=== PATIENT | male | born 1945 | race Caucasian/White ===

== ENCOUNTER 2022-01-09 00:26 | Inpatient (IN) ==
[2022-01-09] MEDS ORDERED: Nitroglycerin 0.4 MG TAB.SUBL SL PRN (12:34)
[2022-01-09] MEDS ORDERED: Ammonium Lactate 30 APPL/225 GM BOTTLE TP PRN (12:34)
[2022-01-09] MEDS ORDERED: Erythromycin OPTH Oint BOTH EYES PRN (12:34)
[2022-01-09] MEDS ORDERED: methocarbamoL 500 MG TABLET PO PRN (12:44)
[2022-01-09] MEDS ORDERED: Artificial Tears SOLN 15 ML BOTTLE BOTH EYES PRN (12:45)
[2022-01-09] MEDS ORDERED: Diclofenac Sodium [Arthritis Pain] 100 GM Gel..Gram TP PRN (12:55)
[2022-01-09] MEDS ORDERED: KETOTIFEN FUMARATE OP PRN (12:56)
[2022-01-09] MEDS ORDERED: *HR* Dextrose 50 % in Water (Syg) 50 ML SYRINGE IVP PRN (14:03)
[2022-01-09] MEDS ORDERED: D5% in Water 1,000 ML IVC PRN (14:03)
[2022-01-09] MEDS ORDERED: Dextrose Gel 15 GM/37.5 ML TUBE PO PRN ×2 (14:03)
[2022-01-09] MEDS: Aspirin Enteric Coated 81 MG Tablet PO SCH (14:41)
[2022-01-09] MEDS: Cyanocobalamin (B-12) 1,000 MCG TABLET PO SCH (14:41)
[2022-01-09] MEDS: GlipiZIDE 5 MG TABLET PO SCH (14:42)
[2022-01-09] MEDS: Loratadine 10 MG TABLET PO PRN (14:42)
[2022-01-09] MEDS ORDERED: Bumetanide 1 MG TABLET PO SCH (17:00)
[2022-01-09] MEDS: Bumetanide 1 MG TABLET PO SCH (18:25)
[2022-01-09] MEDS: *HR* Rivaroxaban 10 MG TABLET PO SCH (18:25)
[2022-01-09] MEDS: Insulin LISPRO 300 UNITS/3 ML VIAL SUBQ SCH ×2 (18:26→21:44)
[2022-01-09] MEDS: Budesonide/Formoterol 160/4.5 1 PUFF INH IH SCH (20:55)
[2022-01-09] MEDS: Levalbuterol Neb 0.63 MG/3 ML IH PRN (20:55)
[2022-01-09] MEDS: *HR* Metformin 500 MG TABLET PO SCH (21:42)
[2022-01-09] MEDS: Spironolactone 25 MG TABLET PO SCH (21:42)
[2022-01-10 05:10] LABS: Basophils % 0.6 %; Eosinophils # 0.2 K/mcL (0.0-0.6); Eosinophils % 2.6 %; Hematocrit 37.9 % (37.5-50.1); Immature Granulocytes % 1.5 % (0-4); Lymphocytes # 1.2 K/mcL (0.6-4.6); Lymphocytes % 16.2 %; Mean Corpuscular HGB Conc 34.3 g/dL (31.6-35.5); Mean Corpuscular Hemoglobin 32.5 pg (28.0-33.3); Mean Corpuscular Volume 94.8 fL (83.0-100.0); Mean Platelet Volume 10.3 fL (9.4-12.4); Monocytes # 0.9 K/mcL (0.0-1.3); Monocytes % 12.3 %; Neutrophils # 4.8 K/mcL (1.6-8.9); Red Cell Distribution Width 14.6 % (11.5-14.5); Segmented Neutrophils % 66.8 %; White Blood Count 7.2 K/mcL (4.3-11.1)
[2022-01-10 05:15] LABS: Platelet Count 113 K/mcL (140-400)
[2022-01-10 05:16] LABS: Platelet Estimate Slight Decrease (Normal)
[2022-01-10 05:29] LABS: Alanine Aminotransferase 13 Units/L (7-52); Albumin 3.5 g/dL (3.5-5.7); Albumin/Globulin Ratio 1.3 (1.1-2.2); Alkaline Phosphatase 46 Units/L (34-104); Aspartate Amino Transferase 12 Units/L (13-39); BUN/Creatinine Ratio 13 (6-26); Bilirubin,Total 0.8 mg/dL (0.3-1.0); Blood Urea Nitrogen 16 mg/dL (8-23); Calcium 9.7 mg/dL (8.6-10.3); Carbon Dioxide 25 mEq/L (23-29); Chloride 104 mEq/L (98-107); Globulin 2.8 g/dL (2.4-3.5); Glucose 165 mg/dL (70-105); Osmolality,Calculated 289 (280-300); Potassium 4.1 mEq/L (3.5-5.1); Sodium 137 mEq/L (136-145); Total Protein 6.3 g/dL (6.4-8.9); eGFR For African Americans > 60 (> 60); eGFR For Non-African Americans 55 (> 60)
[2022-01-10] MEDS: Levalbuterol Neb 0.63 MG/3 ML IH PRN ×2 (08:05→16:09)
[2022-01-10] MEDS: Budesonide/Formoterol 160/4.5 1 PUFF INH IH SCH ×2 (08:05→22:06)
[2022-01-10] MEDS: GlipiZIDE 5 MG TABLET PO SCH (08:30)
[2022-01-10] MEDS: Loratadine 10 MG TABLET PO PRN (08:30)
[2022-01-10] MEDS: Bumetanide 1 MG TABLET PO SCH ×2 (08:31→17:21)
[2022-01-10] MEDS: *HR* Metformin 500 MG TABLET PO SCH ×3 (08:31→14:52)
[2022-01-10] MEDS: Cyanocobalamin (B-12) 1,000 MCG TABLET PO SCH (08:32)
[2022-01-10] MEDS: Magnesium Oxide 400 MG TABLET PO SCH (08:32)
[2022-01-10] MEDS: Aspirin Enteric Coated 81 MG Tablet PO SCH (08:32)
[2022-01-10] MEDS: Spironolactone 25 MG TABLET PO SCH ×2 (08:33→20:43)
[2022-01-10] MEDS: Insulin LISPRO 300 UNITS/3 ML VIAL SUBQ SCH ×4 (08:34→20:47)
[2022-01-10] MEDS: Fluticasone Propionate Nasal 50 MCG/SPRAY BOTTLE NS SCH (08:35)
[2022-01-10] MEDS ORDERED: Cyanocobalamin (B-12) 1,000 MCG TABLET PO SCH (09:00)
[2022-01-10] MEDS ORDERED: Alogliptin Benzoate [Alogliptin] 25 MG Tablet PO SCH (09:00)
[2022-01-10] MEDS ORDERED: *HR* Rivaroxaban 10 MG TABLET PO SCH (09:00)
[2022-01-10] MEDS ORDERED: GlipiZIDE 5 MG TABLET PO SCH (09:00)
[2022-01-10] MEDS ORDERED: Aspirin Enteric Coated 81 MG Tablet PO SCH (09:00)
[2022-01-10] MEDS: *HR* Rivaroxaban 10 MG TABLET PO SCH (17:20)
[2022-01-11 05:18] LABS: Basophils # 0.1 K/mcL (0.0-0.2); Basophils % 0.8 %; Eosinophils # 0.3 K/mcL (0.0-0.6); Eosinophils % 4.1 %; Hematocrit 40.4 % (37.5-50.1); Hemoglobin 13.1 g/dL (12.9-16.9); Immature Granulocytes % 1.3 % (0-4); Lymphocytes # 1.4 K/mcL (0.6-4.6); Lymphocytes % 19.5 %; Mean Corpuscular HGB Conc 32.4 g/dL (31.6-35.5); Mean Corpuscular Hemoglobin 31.8 pg (28.0-33.3); Mean Corpuscular Volume 98.1 fL (83.0-100.0); Mean Platelet Volume 11.6 fL (9.4-12.4); Monocytes # 0.8 K/mcL (0.0-1.3); Monocytes % 11.6 %; Neutrophils # 4.4 K/mcL (1.6-8.9); Red Blood Count 4.12 M/mcL (4.19-5.50); Red Cell Distribution Width 14.9 % (11.5-14.5); Segmented Neutrophils % 62.7 %; White Blood Count 7.1 K/mcL (4.3-11.1)
[2022-01-11 05:21] LABS: Platelet Count 81 K/mcL (140-400)
[2022-01-11 05:24] LABS: Platelet Estimate Slight Decrease (Normal)
[2022-01-11 05:31] LABS: BUN/Creatinine Ratio 19 (6-26); Blood Urea Nitrogen 25 mg/dL (8-23); Calcium 9.4 mg/dL (8.6-10.3); Carbon Dioxide 21 mEq/L (23-29); Chloride 106 mEq/L (98-107); Glucose 138 mg/dL (70-105); Osmolality,Calculated 289 (280-300); Sodium 136 mEq/L (136-145); eGFR For African Americans > 60 (> 60); eGFR For Non-African Americans 54 (> 60)
[2022-01-11] MEDS: Insulin LISPRO 300 UNITS/3 ML VIAL SUBQ SCH ×4 (07:42→19:43)
[2022-01-11] MEDS: Levalbuterol Neb 0.63 MG/3 ML IH PRN ×2 (09:07→21:53)
[2022-01-11] MEDS: Budesonide/Formoterol 160/4.5 1 PUFF INH IH SCH ×2 (09:07→21:52)
[2022-01-11] MEDS: Cyanocobalamin (B-12) 1,000 MCG TABLET PO SCH (09:09)
[2022-01-11] MEDS: Aspirin Enteric Coated 81 MG Tablet PO SCH (09:09)
[2022-01-11] MEDS: *HR* Metformin 500 MG TABLET PO SCH ×3 (09:10→19:42)
[2022-01-11] MEDS: GlipiZIDE 5 MG TABLET PO SCH (09:10)
[2022-01-11] MEDS: Bumetanide 1 MG TABLET PO SCH ×2 (09:11→17:28)
[2022-01-11] MEDS: Spironolactone 25 MG TABLET PO SCH ×2 (09:11→19:40)
[2022-01-11] MEDS: Magnesium Oxide 400 MG TABLET PO SCH (09:12)
[2022-01-11] MEDS: Fluticasone Propionate Nasal 50 MCG/SPRAY BOTTLE NS SCH (09:19)
[2022-01-11] MEDS: *HR* Rivaroxaban 10 MG TABLET PO SCH (17:28)
[2022-01-12 05:36] LABS: Hematocrit 37.2 % (37.5-50.1); Hemoglobin 12.7 g/dL (12.9-16.9); Mean Corpuscular HGB Conc 34.1 g/dL (31.6-35.5); Mean Corpuscular Hemoglobin 31.9 pg (28.0-33.3); Mean Corpuscular Volume 93.5 fL (83.0-100.0); Mean Platelet Volume 10.8 fL (9.4-12.4); Red Blood Count 3.98 M/mcL (4.19-5.50); Red Cell Distribution Width 14.6 % (11.5-14.5); White Blood Count 7.6 K/mcL (4.3-11.1)
[2022-01-12 05:41] LABS: Platelet Count 139 K/mcL (140-400)
[2022-01-12 05:50] LABS: Magnesium 1.8 mg/dL (1.6-2.6); Phosphorous 2.1 mg/dL (2.7-4.5); Potassium 3.8 mEq/L (3.5-5.1)
[2022-01-12] MEDS: Insulin LISPRO 300 UNITS/3 ML VIAL SUBQ SCH ×4 (09:13→20:04)
[2022-01-12] MEDS: *HR* Metformin 500 MG TABLET PO SCH ×3 (09:37→19:57)
[2022-01-12] MEDS: Spironolactone 25 MG TABLET PO SCH ×2 (09:37→19:57)
[2022-01-12] MEDS: Acetaminophen 325 MG TABLET PO PRN (09:37)
[2022-01-12] MEDS: Bumetanide 1 MG TABLET PO SCH ×2 (09:39→17:19)
[2022-01-12] MEDS: Magnesium Oxide 400 MG TABLET PO SCH (09:40)
[2022-01-12] MEDS: Cyanocobalamin (B-12) 1,000 MCG TABLET PO SCH (09:40)
[2022-01-12] MEDS: Aspirin Enteric Coated 81 MG Tablet PO SCH (09:40)
[2022-01-12] MEDS: GlipiZIDE 5 MG TABLET PO SCH (09:41)
[2022-01-12] MEDS: Fluticasone Propionate Nasal 50 MCG/SPRAY BOTTLE NS SCH (10:06)
[2022-01-12] MEDS: Levalbuterol Neb 0.63 MG/3 ML IH PRN ×2 (10:15→22:17)
[2022-01-12] MEDS: Budesonide/Formoterol 160/4.5 1 PUFF INH IH SCH ×2 (10:15→22:16)
[2022-01-12] MEDS ORDERED: 0.9 % Sodium Chloride 1,000 ML IVC SCH (13:00)
[2022-01-12] MEDS: *HR* Rivaroxaban 10 MG TABLET PO SCH (17:19)
[2022-01-13 06:10] LABS: Hematocrit 35.7 % (37.5-50.1); Hemoglobin 12.1 g/dL (12.9-16.9); Mean Corpuscular HGB Conc 33.9 g/dL (31.6-35.5); Mean Corpuscular Hemoglobin 31.8 pg (28.0-33.3); Mean Corpuscular Volume 93.7 fL (83.0-100.0); Mean Platelet Volume 10.2 fL (9.4-12.4); Platelet Count 143 K/mcL (140-400); Red Blood Count 3.81 M/mcL (4.19-5.50); Red Cell Distribution Width 14.6 % (11.5-14.5); White Blood Count 8.4 K/mcL (4.3-11.1)
[2022-01-13 06:24] LABS: Alanine Aminotransferase 9 Units/L (7-52); Albumin 3.6 g/dL (3.5-5.7); Albumin/Globulin Ratio 1.4 (1.1-2.2); Alkaline Phosphatase 43 Units/L (34-104); Aspartate Amino Transferase 8 Units/L (13-39); BUN/Creatinine Ratio 20 (6-26); Bilirubin,Total 0.6 mg/dL (0.3-1.0); Blood Urea Nitrogen 26 mg/dL (8-23); Calcium 8.9 mg/dL (8.6-10.3); Carbon Dioxide 24 mEq/L (23-29); Chloride 106 mEq/L (98-107); Globulin 2.5 g/dL (2.4-3.5); Glucose 172 mg/dL (70-105); Magnesium 1.8 mg/dL (1.6-2.6); Osmolality,Calculated 295 (280-300); Potassium 3.9 mEq/L (3.5-5.1); Sodium 138 mEq/L (136-145); Total Protein 6.1 g/dL (6.4-8.9); eGFR For African Americans > 60 (> 60); eGFR For Non-African Americans 55 (> 60)
[2022-01-13] MEDS: Budesonide/Formoterol 160/4.5 1 PUFF INH IH SCH ×2 (07:36→22:17)
[2022-01-13] MEDS: Levalbuterol Neb 0.63 MG/3 ML IH PRN ×2 (07:36→22:18)
[2022-01-13] MEDS: Insulin LISPRO 300 UNITS/3 ML VIAL SUBQ SCH ×4 (07:45→21:35)
[2022-01-13] MEDS: Cyanocobalamin (B-12) 1,000 MCG TABLET PO SCH (07:48)
[2022-01-13] MEDS: Magnesium Oxide 400 MG TABLET PO SCH (07:48)
[2022-01-13] MEDS: Aspirin Enteric Coated 81 MG Tablet PO SCH (07:48)
[2022-01-13] MEDS: Spironolactone 25 MG TABLET PO SCH ×2 (07:48→21:34)
[2022-01-13] MEDS: Bumetanide 1 MG TABLET PO SCH ×2 (07:49→16:23)
[2022-01-13] MEDS: GlipiZIDE 5 MG TABLET PO SCH (07:49)
[2022-01-13] MEDS: *HR* Metformin 500 MG TABLET PO SCH ×2 (07:50→21:34)
[2022-01-13] MEDS: Fluticasone Propionate Nasal 50 MCG/SPRAY BOTTLE NS SCH (07:51)
[2022-01-13] MEDS: *HR* Rivaroxaban 10 MG TABLET PO SCH (16:23)
[2022-01-13] MEDS: Acetaminophen 325 MG TABLET PO PRN (21:33)
[2022-01-14] MEDS: Budesonide/Formoterol 160/4.5 1 PUFF INH IH SCH (09:35)
[2022-01-14] MEDS: Levalbuterol Neb 0.63 MG/3 ML IH PRN (09:35)
[2022-01-14] MEDS: Magnesium Oxide 400 MG TABLET PO SCH (09:39)
[2022-01-14] MEDS: Spironolactone 25 MG TABLET PO SCH (09:39)
[2022-01-14] MEDS: Cyanocobalamin (B-12) 1,000 MCG TABLET PO SCH (09:39)
[2022-01-14] MEDS: GlipiZIDE 5 MG TABLET PO SCH (09:40)
[2022-01-14] MEDS: Fluticasone Propionate Nasal 50 MCG/SPRAY BOTTLE NS SCH (09:41)
[2022-01-14] MEDS: *HR* Metformin 500 MG TABLET PO SCH (09:41)
[2022-01-14] MEDS: Aspirin Enteric Coated 81 MG Tablet PO SCH (09:42)
[2022-01-14] MEDS: Bumetanide 1 MG TABLET PO SCH (09:42)
[2022-01-14] MEDS: Insulin LISPRO 300 UNITS/3 ML VIAL SUBQ SCH (09:42)
[2022-01-14 11:35] VITALS: BP 123/79; PULSE 76; RESP 20; TEMP 98.4; O2SAT 95
== END 2022-01-14 14:35 | disposition home or self-care (01) ==
LOC: INPGRE
PROVIDERS: ADMIT Student in an Organized Health Care Education/Training Program; ATTEND Family Medicine